=== PATIENT | female | born 1965 | race African-American/Black ===

== ENCOUNTER 2016-09-21 05:38 | Emergency (ER) | payer OTHER, MEDICAID ==
[2016-09-21] VITALS (8 sets, daily range): BP systolic 111–134; BP diastolic 57–81
[~2016-09-21] VITALS: Ht 170.2 cm; Wt 81.6 kg
[2016-09-21] MEDS ORDERED: NORCO 5-325 TA1 EACH ORAL (05:41)
[2016-09-21] MEDS ORDERED: OMEPRAZOLE10 M1 ORAL (05:41)
[2016-09-21] MEDS ORDERED: LORazepam Inj 2mg/ml 1ml IV ONE (05:45)
[2016-09-21] MEDS ORDERED: Haloperidol 5mg/ml Inj IM ONE (05:45)
--- NOTE | 2016-09-21 06:20 | Emergency Room Report ---
History of Present Illness General Chief Complaint: Altered Mental Status Source: Patient, Medical Record, EMS Present Illness HPI This is a 51-year-old female who is brought in by EMS for altered mental status. Patient was very poor historian. I was able to get information from [employer]. She has a history of schizophrenia with previous alcohol abuse. Patient was in the middle of the street screaming. Someone called 911. Patient denies any problem. She said she was crossing a street. She does not know where she lives. Denies any drug use or alcohol use. Denies suicidal thought homicidal thought. Allergies: Coded Allergies: No Known Allergies (Unverified , 09/21/16) Patient History Past Medical History: see triage record, old chart reviewed Past Surgical History: other Family History: none Social History: tobacco use Last Menstrual Period: N/A Now: No Immunizations: other Reviewed Nursing Documentation: PMH: Agreed, PSxH: Agreed Nursing Documentation-PMH Past Medical History: No Stated History Review of Systems ENT: Denies: sore throat Cardiovascular: Denies: chest pain, palpitations Gastrointestinal/Abdominal: Denies: diarrhea, nausea, vomiting Musculoskeletal: Denies: back problems Skin: Denies: rash Neurological: Denies: VIGIL, seizures All Other Systems: negative except mentioned in HPI Physical Exam Vital Signs Date Time Temp Pulse Resp B/P Pulse Ox O2 Delivery O2 Flow Rate FiO2 09/21/16 05:35 120 18 150/90 98 Room Air vitals with tachycardia Sp02 EP Interpretation: reviewed, normal General Appearance: alert/responsive, no apparent distress, non-toxic Head: normocephalic, atraumatic Eyes: PERRL, EOMI ENT: oropharynx normal Neck: supple/symm/no masses Respiratory: effort normal, no rhonchi, no wheezing Cardiovascular: no murmur, gallop, rub Gastrointestinal: non-tender, no mass, non-distended, no rebound/guarding, normal bowel sounds Musculoskeletal: gait & station normal Neurologic: oriented x3, sensory intact, motor strength/tone normal Psychiatric: other - Very agitated Skin: no rash, normal palpation Medical Decision Making Diagnostic Impression: Primary Impression: Altered mental status Qualified Codes: R41.82 - Altered mental status, unspecified Additional Impressions: Psychosis Qualified Codes: F29 - Unspecified psychosis not due to a substance or known physiological condition Polysubstance abuse Cocaine abuse ER Course Patient presents with acute psychosis. This may be secondary to a drug and schizophrenia. Patient is not answering questions appropriately. She's not cooperative. She is however calmer. Will get blood to make sure there is no i abnormality her kidney dysfunction. She is medically stable afterward to be transfer to [place]. I will sign this patient out to Dr. Rodriguez for final disposition. Rhythm Strip Diag. Results EP Interpretation: yes Rhythm: NSR, no PVC's, no ectopy Last Vital Signs Date Time Temp Pulse Resp B/P Pulse Ox O2 Delivery O2 Flow Rate FiO2 09/21/16 05:35 120 18 150/90 98 Room Air Status: improved Disposition: XFER [facility] HOSP Condition: Stable Referrals: [facility] (PCP) ANDREA BRASHER M.D. Sep 21, 2016 06:20
[2016-09-21] MEDS ORDERED: VITAMIN B-1100 MG ORAL (06:41)
[2016-09-21] MEDS ORDERED: NICODERM CQ1 EAC3 TD (06:41)
[2016-09-21] MEDS ORDERED: ABILIFY30 MG ORAL (06:41)
[2016-09-21] MEDS ORDERED: MULTIVITAMINS1 EAC2 ORAL (06:41)
[2016-09-21] MEDS ORDERED: CALCIUM 600 +1 EAC2 PO (06:41)
[2016-09-21] MEDS ORDERED: FLUTICASONE PRO16 G1 NASAL (06:41)
[2016-09-21] MEDS ORDERED: K-TAB10 MEQ PO (06:41)
[2016-09-21] MEDS ORDERED: LORATADINE10 M2 PO (06:41)
[2016-09-21] MEDS ORDERED: LORAZEPAM1 MG ORAL (06:41)
[2016-09-21] MEDS ORDERED: FOLIC ACID1 MG ORAL (06:41)
[2016-09-21] MEDS ORDERED: FLUOXETINE HCL20 MG ORAL (06:41)
[2016-09-21 06:46] LABS: APPEARANCE,URINE CLEAR; KETONES,URINE 1+ (NEGATIVE); LEUKOCYTE ESTERASE ,URINE 1+ (NEGATIVE); NITRITE,URINE NEGATIVE (NEGATIVE); PH,URINE 6 (4.5-8.0); PROTEIN,URINE 1+ (NEGATIVE); UROBILINOGEN,URINE 1 MG/DL (0.0-1.0)
[2016-09-21 07:06] LABS: BACTERIA,URINE FEW /HPF; RBC,URINE 0-2 /HPF (0 - 2); SQUAMOUS EPITHELIAL CELL,UR FEW /LPF (NONE/OCC)
[2016-09-21 07:56] LABS: MEAN CORPUSCULAR HEMOGLOBIN 37.3 PG (27.0-31.0); MEAN CORPUSCULAR HGB CONC 32.3 G/DL (32.0-36.0); MEAN CORPUSCULAR VOLUME 115 FL (80-99); PLATELET COUNT 603 K/UL (150-450); RED CELL DISTRIBUTION WIDTH 13.7 % (11.6-14.8); WHITE BLOOD COUNT 15.6 K/UL (4.8-10.8)
[2016-09-21 08:15] LABS: ACETAMINOPHEN < 10 ug/mL (10-30); ALANINE AMINOTRANSFERASE 21 U/L (3-33); ALCOHOL < 10 mg/dL; ANION GAP 19 (5-15); ASPARTATE AMINO TRANSFERASE 43 U/L (5-40); CALCIUM 8.8 mg/dL (8.6-10.2); CARBON DIOXIDE 23 mEQ/L (20-30); CHLORIDE 102 mEQ/L (98-107); CREATININE 0.5 mg/dL (0.5-0.9); GLOMERULAR FILTRATION RATE > 60 mL/min (>60); HEMOLYSIS 0; POTASSIUM 3.7 mEQ/L (3.4-4.9); SODIUM 144 mEQ/L (135-145); TOTAL PROTEIN 5.8 g/dL (6.6-8.7)
[2016-09-21 09:15] LABS: BAND NEUTROPHILS % (MANUAL) 0 % (0-8); BASOPHILS % (MANUAL) 0 % (0-2); EOSINOPHILS % (MANUAL) 0 % (0-3); LYMPHOCYTES % (MANUAL) 8 % (20-45); MACROCYTES 1+; NEUTROPHILS % (MANUAL) 90 % (45-75); PLATELET ESTIMATE INCREASED; PLATELET MORPHOLOGY NORMAL; TOTAL CELLS COUNTED 100
[2016-09-21 14:26] LABS: TROPONIN I 0.55 ng/mL (<=0.30)
[2016-09-21] MEDS ORDERED: Metoprolol 5mg/5ml Inj IVP SCH (14:45)
--- NOTE | 2016-09-24 18:02 | Cardiology Report ---
APPROVED REPORT EKG Measurement Heart [id number] Sinus tachycardia Low voltage QRS Borderline ECG
== END 2016-09-21 18:15 | disposition short-term general hospital (02) ==
LOC: EDBD 05:38 → EMR 05:48
DX: F29 Unspecified psychosis not due to a substance or known physiological condition (principal); F19.10 Other psychoactive substance abuse, uncomplicated; R41.82 Altered mental status, unspecified; F20.9 Schizophrenia, unspecified
CPT/HCPCS: 36415; 80053; 80300; 81003; 84484; 85007; 85025; 87040; 93005; 96361; 96372; 96374; 96375; 99284; G0480; J0696; J1630; 80329